=== PATIENT | female | born 1945 | race African-American/Black ===

== ENCOUNTER 2020-03-24 11:17 | Emergency (ER) | payer BC, MEDICAID ==
[~2020-03-24] VITALS: Ht 165.1 cm; Wt 64.0 kg
[2020-03-24] MEDS ORDERED: ACETAMINOPHEN 325MG TABLET PO STA (12:27)
[2020-03-24 13:07] LABS: BASOPHILS % 0.9 % (0.0-2.0); EOSINOPHILS % 1.6 % (0.0-5.0); HEMATOCRIT. 34.7 % (36.0-48.0); HEMOGLOBIN. 12.1 g/dL (12.0-16.0); LYMPHOCYTES % 24.9 % (20.0-50.0); MEAN CORPUSCULAR HEMOGLOBIN 33.2 pg (28.0-32.0); MEAN CORPUSCULAR VOLUME 95.7 fL (81.0-99.0); MEAN PLATELET VOLUME 8.8 fl (7.4-10.4); MONOCYTES % 10.4 % (2.0-8.0); NEUTROPHILS % 62.2 % (40.0-76.0); PLATELET 226 x1000/uL (130-400); RED BLOOD CELL COUNT 3.63 mill/uL (4.2-5.4); RED CELL DISTRIBUTION WIDTH 13.4 % (11.6-14.6)
[2020-03-24 13:13] LABS: CLARITY URINE CLOUDY (CLEAR); COLOR URINE YELLOW (YELLOW); KETONES URINE NEGATIVE (NEGATIVE); LEUKOCYTE ESTERASE URINE 3+ (NEGATIVE); NITRITE URINE NEGATIVE (NEGATIVE); OCCULT BLOOD URINE NEGATIVE (NEGATIVE); PROTEIN URINE NEGATIVE (NEGATIVE); SPECIFIC GRAVITY URINE 1.012 (1.005-1.030)
[2020-03-24 13:15] LABS: CHLORIDE 101 mEq/L (98-107)
[2020-03-24] MEDS ORDERED: CEFTRIAXONE 1 G PREMIX 50 ML IV NR (13:45)
[2020-03-24] MEDS ORDERED: POTASSIUM CHLORIDE 20MEQ TABLET SR PO NR (13:45)
[2020-03-24 14:45] VITALS: BP 150/98
== END 2020-03-24 15:47 | disposition home or self-care (01) ==
LOC: ER 11:34
DX: N39.0 Urinary tract infection, site not specified (principal); E87.6 Hypokalemia; I10 Essential (primary) hypertension; Z86.73 Personal history of transient ischemic attack (TIA), and cerebral infarction without residual deficits
CPT/HCPCS: 36415; 70450; 71045; 72170; 80053; 81003; 84484; 85025; 87086; 93005; 96374; 99285; J0696

== ENCOUNTER 2020-05-29 13:25 | Inpatient (IN) | payer MEDICARE, MEDICAID ==
[~2020-05-29] VITALS: Ht 167.6 cm; Wt 65.3 kg
[2020-05-29] MEDS ORDERED: SODIUM CHLORIDE 0.9% 1000ML BAG (SEPSIS BOLUS) IV ONE (13:45)
[2020-05-29] MEDS ORDERED: PIPERACILLIN/TAZ 3.375G PREMIX 50 ML IV ONE (13:45)
[2020-05-29] MEDS ORDERED: VANCOMYCIN 1 G PREMIX 200 ML IV ONE (13:45)
[2020-05-29 14:23] LABS: BASOPHILS % 0.1 % (0.0-2.0); HEMATOCRIT. 27.1 % (36.0-48.0); MEAN CORPUSCULAR HEMOGLOBIN 33.6 pg (28.0-32.0); MEAN CORPUSCULAR VOLUME 101.2 fL (81.0-99.0); MEAN PLATELET VOLUME 9.3 fl (7.4-10.4); MONOCYTES % 6.1 % (2.0-8.0); NEUTROPHILS % 82.8 % (40.0-76.0); PLATELET 155 x1000/uL (130-400); RED BLOOD CELL COUNT 2.68 mill/uL (4.2-5.4); RED CELL DISTRIBUTION WIDTH 16.2 % (11.6-14.6)
[2020-05-29 14:32] LABS: CHLORIDE 115 mEq/L (98-107)
[2020-05-29 14:33] LABS: INR 1.2; PROTHROMBIN TIME 12.2 sec (9.6-11.0)
[2020-05-29] MEDS ORDERED: SODIUM CHLORIDE 0.9% 1,000 ML IV ONE (15:15)
[2020-05-29] MEDS ORDERED: CLONIDINE 0.1MG TABLET PO PRN (19:00)
[2020-05-29] MEDS ORDERED: DIPHENHYDRAMINE 50MG/ML VIAL IV PRN (19:00)
[2020-05-29] MEDS ORDERED: ONDANSETRON HCL 4MG/2ML INJ IV PRN (19:00)
[2020-05-29] MEDS ORDERED: MORPHINE SULFATE 2 MG/ML CPJ (NOT FOR IM USE) IV PRN (19:00)
[2020-05-29] MEDS ORDERED: ACETAMINOPHEN 325MG TABLET PO PRN (19:00)
[2020-05-29] MEDS: DEXTROSE 5% WATER 1,000 ML IV SCH (19:52)
[2020-05-29] MEDS ORDERED: CEFTRIAXONE 1 G PREMIX 50 ML IV SCH (20:00)
[2020-05-29] MEDS ORDERED: CEFTRIAXONE 2 G PREMIX 50 ML IV SCH (20:00)
[2020-05-29] MEDS ORDERED: AMPICILLIN IM SCH (20:15)
[2020-05-29] MEDS: AMPICILLIN 2GM in NS 100ML 100 ML IV SCH (21:53)
[2020-05-30 03:59] LABS: BASOPHILS % 0.1 % (0.0-2.0); EOSINOPHILS % 0.1 % (0.0-5.0); HEMATOCRIT. 28.1 % (36.0-48.0); HEMOGLOBIN. 9.2 g/dL (12.0-16.0); LYMPHOCYTES % 8.5 % (20.0-50.0); MEAN CORPUSCULAR VOLUME 101.2 fL (81.0-99.0); MEAN PLATELET VOLUME 9.6 fl (7.4-10.4); NEUTROPHILS % 87.3 % (40.0-76.0); PLATELET 111 x1000/uL (130-400); RED BLOOD CELL COUNT 2.78 mill/uL (4.2-5.4)
[2020-05-30 04:13] LABS: CHLORIDE 117 mEq/L (98-107)
[2020-05-30 04:21] LABS: LDL CHOLESTEROL 39 mg/dL (5-100)
[2020-05-30 04:22] LABS: CREATINE KINASE 420 IU/L (26-192)
[2020-05-30 04:23] LABS: HDL CHOLESTEROL 50 mg/dL (40-59)
[2020-05-30] MEDS: AMPICILLIN 2GM in NS 100ML 100 ML IV SCH (05:39)
[2020-05-30] MEDS ORDERED: POTASSIUM CHLORIDE INJ 40 MEQ in DEXT 5% WATER 250 ML IV SCH (06:00)
[2020-05-30] MEDS: CEFTRIAXONE 2 G in DEXTROSE 5% WATER 50 ML IV SCH ×2 (10:26→23:21)
[2020-05-30] MEDS ORDERED: DEXTROSE 50% WATER 50ML SYRINGE IV PRN (11:30)
[2020-05-30] MEDS: INSULIN LISPRO 100 UNITS/ML SUBCUT SCH ×3 (12:40→21:00)
[2020-05-30] MEDS: BLOOD SUGAR DIAGNOSTIC STRIP TEST SCH ×3 (12:51→21:38)
[2020-05-30] MEDS: DEXTROSE 5% WATER 1,000 ML IV SCH ×2 (12:56→22:59)
[2020-05-30 13:00] VITALS: BP 116/78
[2020-05-30] MEDS: AMPICILLIN 2000MG in SODIUM CHLORIDE 0.9% 100ML IV SCH ×2 (15:17→21:38)
[2020-05-30 16:00] VITALS: BP 127/76
[2020-05-30] MEDS ORDERED: ATOR-2 PO (18:54)
[2020-05-30] MEDS ORDERED: BENA1TAB18 MT (18:54)
[2020-05-30] MEDS ORDERED: ASPI-986 PO (18:54)
[2020-05-30] MEDS ORDERED: TOPUD PO (18:54)
[2020-05-30] MEDS ORDERED: POTASSIUM CHLORIDE 20MEQ/PACKET NG SCH (21:00)
[2020-05-30] MEDS ORDERED: POTASSIUM CHLORIDE INJ 40 MEQ in DEXT 5% WATER 250 ML IV NR (23:00)
[2020-05-31] VITALS: BP_SYST 120; BP_SYST 128; BP_DIAS 70; BP_DIAS 80
[2020-05-31 00:29] LABS: TOTAL IRON BINDING CAPACITY 159 ug/dL (250-450)
[2020-05-31 01:36] LABS: FOLIC ACID (FOLATE) SERUM 3.2 ng/mL (>5.38)
[2020-05-31 04:00] VITALS: BP 148/79
[2020-05-31] MEDS: INSULIN LISPRO 100 UNITS/ML SUBCUT SCH ×4 (06:24→21:00)
[2020-05-31] MEDS: BLOOD SUGAR DIAGNOSTIC STRIP TEST SCH ×4 (06:24→21:27)
[2020-05-31 06:25] LABS: BASOPHILS % 0.1 % (0.0-2.0); EOSINOPHILS % 0.5 % (0.0-5.0); HEMATOCRIT. 27.2 % (36.0-48.0); HEMOGLOBIN. 9.2 g/dL (12.0-16.0); LYMPHOCYTES % 7.4 % (20.0-50.0); MEAN CORPUSCULAR HEMOGLOBIN 34.2 pg (28.0-32.0); MEAN CORPUSCULAR VOLUME 100.6 fL (81.0-99.0); MEAN PLATELET VOLUME 9.5 fl (7.4-10.4); MONOCYTES % 2.9 % (2.0-8.0); NEUTROPHILS % 89.1 % (40.0-76.0); PLATELET 110 x1000/uL (130-400); RED BLOOD CELL COUNT 2.71 mill/uL (4.2-5.4); RED CELL DISTRIBUTION WIDTH 17.2 % (11.6-14.6)
[2020-05-31] MEDS: DEXTROSE 5% WATER 1,000 ML IV SCH (07:54)
[2020-05-31 08:00] VITALS: BP 107/77
[2020-05-31 08:37] LABS: CLARITY URINE TURBID (CLEAR); COLOR URINE YELLOW (YELLOW); KETONES URINE NEGATIVE (NEGATIVE); LEUKOCYTE ESTERASE URINE 3+ (NEGATIVE); NITRITE URINE NEGATIVE (NEGATIVE); OCCULT BLOOD URINE 2+ (NEGATIVE); PROTEIN URINE 1+ (NEGATIVE); SPECIFIC GRAVITY URINE 1.017 (1.005-1.030)
[2020-05-31] MEDS ORDERED: INFLUENZA VACCINE 05/PF 0.5 ML VIAL IM ONE (09:00)
[2020-05-31] MEDS ORDERED: PNEUMOCOCCAL 23-VAL P-SAC VAC 0.5 ML IM ONE (09:00)
[2020-05-31] MEDS: ASPIRIN 325MG TABLET PO SCH (10:10)
[2020-05-31] MEDS: CEFTRIAXONE 2 G in DEXTROSE 5% WATER 50 ML IV SCH (10:10)
[2020-05-31] MEDS: CLOPIDOGREL 75MG TABLET PO SCH (10:40)
[2020-05-31 12:00] VITALS: BP 100/74
[2020-05-31] MEDS ORDERED: VANCOMYCIN 1 G PREMIX 200 ML IV NR (14:00)
[2020-05-31 16:00] VITALS: BP 114/75
[2020-05-31 20:00] VITALS: BP 113/80
[2020-05-31] MEDS: ATORVASTATIN CALCIUM 40MG TABLET PO SCH (21:30)
[2020-06-01] VITALS: BP 120/80
[2020-06-01] MEDS: DEXTROSE 5% WATER 1,000 ML IV SCH ×2 (03:54→18:36)
[2020-06-01 04:00] VITALS: BP 107/78
[2020-06-01] MEDS: BLOOD SUGAR DIAGNOSTIC STRIP TEST SCH ×4 (06:36→21:00)
[2020-06-01 07:20] LABS: BASOPHILS % 0.2 % (0.0-2.0); EOSINOPHILS % 0.4 % (0.0-5.0); HEMOGLOBIN. 9.2 g/dL (12.0-16.0); LYMPHOCYTES % 8.5 % (20.0-50.0); MEAN CORPUSCULAR VOLUME 100.2 fL (81.0-99.0); MEAN PLATELET VOLUME 9.5 fl (7.4-10.4); MONOCYTES % 2.8 % (2.0-8.0); NEUTROPHILS % 88.1 % (40.0-76.0); PLATELET 97 x1000/uL (130-400); RED CELL DISTRIBUTION WIDTH 16.8 % (11.6-14.6)
[2020-06-01] MEDS: INSULIN LISPRO 100 UNITS/ML SUBCUT SCH ×4 (07:40→21:00)
[2020-06-01 08:00] VITALS: BP 113/74
[2020-06-01] MEDS: ASPIRIN 325MG TABLET PO SCH (09:21)
[2020-06-01] MEDS: CEFTRIAXONE 2,000 G in DEXTROSE 5% WATER 50 ML IV SCH (09:21)
[2020-06-01] MEDS: CLOPIDOGREL 75MG TABLET PO SCH (09:22)
[2020-06-01 12:00] VITALS: BP 115/80
[2020-06-01 16:00] VITALS: BP 106/74
[2020-06-01] MEDS ORDERED: VANCOMYCIN 1 G PREMIX 200 ML IV NR (17:00)
[2020-06-01 20:00] VITALS: BP 106/77
[2020-06-02] VITALS: BP 130/86
[2020-06-02] MEDS: ATORVASTATIN CALCIUM 40MG TABLET PO SCH ×2 (00:40→21:08)
[2020-06-02 04:00] VITALS: BP 126/85
[2020-06-02] MEDS: BLOOD SUGAR DIAGNOSTIC STRIP TEST SCH ×4 (06:33→21:07)
[2020-06-02] MEDS: INSULIN LISPRO 100 UNITS/ML SUBCUT SCH ×4 (07:40→21:00)
[2020-06-02 08:00] VITALS: BP 122/82
[2020-06-02] MEDS: CLOPIDOGREL 75MG TABLET PO SCH (08:17)
[2020-06-02] MEDS: ASPIRIN 325MG TABLET PO SCH (08:17)
[2020-06-02 09:06] LABS: PHOSPHORUS 2.6 mg/dL (2.5-4.9)
[2020-06-02] MEDS: CEFTRIAXONE 2,000 G in DEXTROSE 5% WATER 50 ML IV SCH (09:14)
[2020-06-02] MEDS: DEXTROSE 5% WATER 1,000 ML IV SCH ×2 (09:15→21:08)
[2020-06-02] MEDS: FLUCONAZOLE 100MG TABLET PO SCH (09:29)
[2020-06-02 10:35] LABS: BASOPHILS % 0.3 % (0.0-2.0); EOSINOPHILS % 0.6 % (0.0-5.0); HEMATOCRIT. 23.5 % (36.0-48.0); HEMOGLOBIN. 7.9 g/dL (12.0-16.0); LYMPHOCYTES % 8.3 % (20.0-50.0); MEAN CORPUSCULAR VOLUME 100.8 fL (81.0-99.0); MEAN PLATELET VOLUME 9.3 fl (7.4-10.4); MONOCYTES % 2.6 % (2.0-8.0); NEUTROPHILS % 88.2 % (40.0-76.0); PLATELET 77 x1000/uL (130-400); RED BLOOD CELL COUNT 2.33 mill/uL (4.2-5.4)
[2020-06-02] MEDS ORDERED: POTASSIUM CHLORIDE INJ 40 MEQ in DEXT 5% WATER 250 ML IV NR (11:00)
[2020-06-02 12:00] VITALS: BP 125/85
[2020-06-02 16:00] VITALS: BP 129/92
[2020-06-02] MEDS: CEFEPIME 1,000 MG in DEXTROSE 5% WATER 50 ML IV SCH ×2 (16:24→23:25)
[2020-06-02 20:00] VITALS: BP 138/90
[2020-06-03] VITALS: BP 122/90
[2020-06-03 04:00] VITALS: BP 121/86
[2020-06-03] MEDS: DEXTROSE 5% WATER 1,000 ML IV SCH ×2 (06:09→17:41)
[2020-06-03 06:48] LABS: BASOPHILS % 0.2 % (0.0-2.0); HEMATOCRIT. 23.9 % (36.0-48.0); LYMPHOCYTES % 15.8 % (20.0-50.0); MEAN CORPUSCULAR HEMOGLOBIN 34.1 pg (28.0-32.0); MEAN CORPUSCULAR VOLUME 101.5 fL (81.0-99.0); MEAN PLATELET VOLUME 9.2 fl (7.4-10.4); MONOCYTES % 2.2 % (2.0-8.0); NEUTROPHILS % 80.8 % (40.0-76.0); PLATELET 62 x1000/uL (130-400); RED BLOOD CELL COUNT 2.36 mill/uL (4.2-5.4); RED CELL DISTRIBUTION WIDTH 16.9 % (11.6-14.6)
[2020-06-03 06:54] LABS: CHLORIDE 114 mEq/L (98-107)
[2020-06-03 07:00] LABS: PHOSPHORUS 2.1 mg/dL (2.5-4.9)
[2020-06-03] MEDS: INSULIN LISPRO 100 UNITS/ML SUBCUT SCH ×4 (07:35→20:59)
[2020-06-03] MEDS: BLOOD SUGAR DIAGNOSTIC STRIP TEST SCH ×4 (07:35→20:59)
[2020-06-03 08:00] VITALS: BP 131/86
[2020-06-03] MEDS ORDERED: VANCOMYCIN 500 MG PREMIX 100 ML IV SCH (09:00)
[2020-06-03] MEDS: CEFEPIME 1,000 MG in DEXTROSE 5% WATER 50 ML IV SCH ×3 (09:39→23:15)
[2020-06-03] MEDS: FLUCONAZOLE 100MG TABLET PO SCH (09:40)
[2020-06-03] MEDS ORDERED: POTASSIUM PHOS,M-BASIC-D-BASIC 30 MMOL in DEXT 5% WATER 500 ML IV SCH (11:00)
[2020-06-03 12:00] VITALS: BP 118/89
[2020-06-03 16:00] VITALS: BP 133/90
[2020-06-03] MEDS ORDERED: CYANOCOBALAMIN 1000MCG/ML VIAL IM NR (16:30)
[2020-06-03 20:00] VITALS: BP 145/99
[2020-06-03] MEDS: ATORVASTATIN CALCIUM 40MG TABLET PO SCH (21:43)
[2020-06-04] VITALS (7 sets, daily range): BP systolic 106–138; BP diastolic 76–97
[2020-06-04] MEDS: DEXTROSE 5% WATER 1,000 ML IV SCH ×3 (01:15→23:07)
[2020-06-04] MEDS: BLOOD SUGAR DIAGNOSTIC STRIP TEST SCH ×4 (06:17→21:00)
[2020-06-04] MEDS: INSULIN LISPRO 100 UNITS/ML SUBCUT SCH ×4 (06:55→21:00)
[2020-06-04] MEDS: CEFEPIME 1,000 MG in DEXTROSE 5% WATER 50 ML IV SCH ×3 (08:23→23:09)
[2020-06-04] MEDS: FOLIC ACID 1MG TABLET PO SCH (08:42)
[2020-06-04 08:57] LABS: BASOPHILS % 0.1 % (0.0-2.0); EOSINOPHILS % 0.5 % (0.0-5.0); HEMOGLOBIN. 7.5 g/dL (12.0-16.0); LYMPHOCYTES % 10.9 % (20.0-50.0); MEAN CORPUSCULAR HEMOGLOBIN 33.8 pg (28.0-32.0); MEAN CORPUSCULAR VOLUME 99.4 fL (81.0-99.0); MEAN PLATELET VOLUME 9.8 fl (7.4-10.4); MONOCYTES % 1.7 % (2.0-8.0); NEUTROPHILS % 86.8 % (40.0-76.0); RED BLOOD CELL COUNT 2.22 mill/uL (4.2-5.4)
[2020-06-04 09:00] LABS: INR 1.2
[2020-06-04 09:10] LABS: CHLORIDE 103 mEq/L (98-107)
[2020-06-04 09:16] LABS: PHOSPHORUS 3.5 mg/dL (2.5-4.9)
[2020-06-04 09:24] LABS: PLATELET 48 x1000/uL (130-400)
[2020-06-04 09:50] LABS: PLATELET ESTIMATE MARKEDLY DECREASED
[2020-06-04] MEDS: FLUCONAZOLE 200MG/5ML ORAL SYR NG SCH (10:00)
[2020-06-04] MEDS ORDERED: FENTANYL CITRATE/PF 50MCG/ML 2ML VIAL ONE (10:12)
[2020-06-04] MEDS ORDERED: MIDAZOLAM HCL 5 MG/5 ML VIAL ONE (10:12)
[2020-06-04] MEDS ORDERED: MIDAZOLAM HCL 5 MG/5 ML VIAL IV PRN (10:47)
[2020-06-04] MEDS: MORPHINE SULFATE 2 MG/ML CPJ (NOT FOR IM USE) IV PRN (14:56)
[2020-06-04] MEDS ORDERED: MAGNESIUM 2 G PREMIX 50 ML IV NR (15:30)
[2020-06-05] VITALS: BP 103/72
[2020-06-05] MEDS: MORPHINE SULFATE 2 MG/ML CPJ (NOT FOR IM USE) IV PRN (01:23)
[2020-06-05 04:00] VITALS: BP 113/80
[2020-06-05] MEDS: INSULIN LISPRO 100 UNITS/ML SUBCUT SCH ×4 (07:40→20:18)
[2020-06-05 08:00] VITALS: BP 108/81
[2020-06-05 08:15] LABS: BASOPHILS % 0.2 % (0.0-2.0); EOSINOPHILS % 0.7 % (0.0-5.0); HEMATOCRIT. 22.5 % (36.0-48.0); HEMOGLOBIN. 7.5 g/dL (12.0-16.0); LYMPHOCYTES % 19.7 % (20.0-50.0); MEAN CORPUSCULAR HEMOGLOBIN 33.6 pg (28.0-32.0); MEAN CORPUSCULAR VOLUME 100.1 fL (81.0-99.0); NEUTROPHILS % 75.4 % (40.0-76.0); RED BLOOD CELL COUNT 2.25 mill/uL (4.2-5.4); RED CELL DISTRIBUTION WIDTH 16.3 % (11.6-14.6)
[2020-06-05 08:24] LABS: PLATELET 37 x1000/uL (130-400)
[2020-06-05 08:40] LABS: CHLORIDE 99 mEq/L (98-107)
[2020-06-05 08:49] LABS: PHOSPHORUS 3.1 mg/dL (2.5-4.9)
[2020-06-05] MEDS: CEFEPIME 1,000 MG in DEXTROSE 5% WATER 50 ML IV SCH ×3 (09:03→23:20)
[2020-06-05] MEDS: FLUCONAZOLE 200MG/5ML ORAL SYR NG SCH (09:03)
[2020-06-05] MEDS: FOLIC ACID 1MG TABLET PO SCH (09:03)
[2020-06-05] MEDS: DEXTROSE 5% WATER 1,000 ML IV SCH (09:04)
[2020-06-05 12:00] VITALS: BP 119/77
[2020-06-05] MEDS: BLOOD SUGAR DIAGNOSTIC STRIP TEST SCH ×3 (12:11→20:18)
[2020-06-05 16:00] VITALS: BP 108/74
[2020-06-05 20:00] VITALS: BP 101/71
[2020-06-06] VITALS: BP 108/77
[2020-06-06 04:00] VITALS: BP 109/75
[2020-06-06] MEDS: INSULIN LISPRO 100 UNITS/ML SUBCUT SCH ×4 (06:35→21:00)
[2020-06-06] MEDS: BLOOD SUGAR DIAGNOSTIC STRIP TEST SCH ×4 (06:35→21:00)
[2020-06-06 08:00] VITALS: BP 116/80
[2020-06-06] MEDS: FLUCONAZOLE 200MG/5ML ORAL SYR NG SCH (09:18)
[2020-06-06] MEDS: FOLIC ACID 1MG TABLET PO SCH (09:18)
[2020-06-06] MEDS: CEFEPIME 1,000 MG in DEXTROSE 5% WATER 50 ML IV SCH ×3 (09:19→23:45)
[2020-06-06 09:45] LABS: BASOPHILS % 0.2 % (0.0-2.0); EOSINOPHILS % 0.4 % (0.0-5.0); LYMPHOCYTES % 15.8 % (20.0-50.0); MEAN CORPUSCULAR HEMOGLOBIN 33.6 pg (28.0-32.0); MEAN CORPUSCULAR VOLUME 99.4 fL (81.0-99.0); MEAN PLATELET VOLUME 10.4 fl (7.4-10.4); MONOCYTES % 7.4 % (2.0-8.0); NEUTROPHILS % 76.2 % (40.0-76.0); RED BLOOD CELL COUNT 2.05 mill/uL (4.2-5.4); RED CELL DISTRIBUTION WIDTH 16.7 % (11.6-14.6)
[2020-06-06 10:04] LABS: CHLORIDE 100 mEq/L (98-107)
[2020-06-06 10:09] LABS: PHOSPHORUS 2.7 mg/dL (2.5-4.9)
[2020-06-06 10:24] LABS: HEMOGLOBIN. 6.9 g/dL (12.0-16.0)
[2020-06-06 10:25] LABS: HEMATOCRIT. 20.3 % (36.0-48.0); PLATELET 33 x1000/uL (130-400)
[2020-06-06 16:00] VITALS: BP 110/74
[2020-06-06 20:00] VITALS: BP 115/74
[2020-06-06 20:04] LABS: HEMATOCRIT 23.7 % (36.0-48.0); HEMOGLOBIN 7.9 g/dL (12.0-16.0); MEAN CORPUSCULAR HEMOGLOBIN 33.1 pg (28.0-32.0); MEAN CORPUSCULAR VOLUME 99.6 fL (81.0-99.0); RED BLOOD CELL COUNT 2.38 mill/uL (4.2-5.4)
[2020-06-06 20:08] LABS: PLATELET 30 x1000/uL (130-400)
[2020-06-06] MEDS: NYSTATIN POWDER 15GM TOP SCH (23:45)
[2020-06-07] VITALS: BP 101/70
[2020-06-07 04:00] VITALS: BP 97/62
[2020-06-07] MEDS: INSULIN LISPRO 100 UNITS/ML SUBCUT SCH ×4 (06:29→20:48)
[2020-06-07] MEDS: BLOOD SUGAR DIAGNOSTIC STRIP TEST SCH ×4 (06:29→20:48)
[2020-06-07] MEDS: CEFEPIME 1,000 MG in DEXTROSE 5% WATER 50 ML IV SCH ×3 (07:51→23:36)
[2020-06-07 08:00] VITALS: BP 96/77
[2020-06-07 09:02] LABS: HEMATOCRIT. 21.7 % (36.0-48.0); HEMOGLOBIN. 7.3 g/dL (12.0-16.0); MEAN CORPUSCULAR HEMOGLOBIN 33.8 pg (28.0-32.0); MEAN CORPUSCULAR VOLUME 99.8 fL (81.0-99.0); MEAN PLATELET VOLUME 10.4 fl (7.4-10.4); RED BLOOD CELL COUNT 2.17 mill/uL (4.2-5.4); RED CELL DISTRIBUTION WIDTH 17.4 % (11.6-14.6)
[2020-06-07 09:05] LABS: PLATELET 29 x1000/uL (130-400)
[2020-06-07] MEDS: FOLIC ACID 1MG TABLET PO SCH (09:13)
[2020-06-07] MEDS: NYSTATIN POWDER 15GM TOP SCH ×2 (09:13→21:02)
[2020-06-07] MEDS: FLUCONAZOLE 200MG/5ML ORAL SYR NG SCH (09:17)
[2020-06-07 09:21] LABS: PHOSPHORUS 3.3 mg/dL (2.5-4.9)
[2020-06-07 10:59] LABS: NUCLEATED RED BLOOD CELLS 2 /100 WBC
[2020-06-07 11:00] LABS: PLATELET ESTIMATE MARKEDLY DECREASED
[2020-06-07 12:00] VITALS: BP 96/62
[2020-06-07] MEDS: METOCLOPRAMIDE HCL 10MG/2ML VIAL IV SCH ×3 (12:00→23:36)
[2020-06-07 16:00] VITALS: BP 104/69
[2020-06-07 20:00] VITALS: BP 100/67
[2020-06-08] VITALS (10 sets, daily range): BP systolic 105–130; BP diastolic 60–84
[2020-06-08] MEDS: METOCLOPRAMIDE HCL 10MG/2ML VIAL IV SCH ×3 (05:18→18:00)
[2020-06-08] MEDS: INSULIN LISPRO 100 UNITS/ML SUBCUT SCH ×4 (06:00→21:00)
[2020-06-08] MEDS: BLOOD SUGAR DIAGNOSTIC STRIP TEST SCH ×4 (06:00→21:00)
[2020-06-08 07:15] LABS: EOSINOPHILS % 0.2 % (0.0-5.0); LYMPHOCYTES % 9.2 % (20.0-50.0); MEAN CORPUSCULAR HEMOGLOBIN 33.8 pg (28.0-32.0); MEAN CORPUSCULAR VOLUME 99.6 fL (81.0-99.0); MEAN PLATELET VOLUME 10.2 fl (7.4-10.4); MONOCYTES % 7.4 % (2.0-8.0); NEUTROPHILS % 83.2 % (40.0-76.0); RED BLOOD CELL COUNT 1.83 mill/uL (4.2-5.4); RED CELL DISTRIBUTION WIDTH 16.8 % (11.6-14.6)
[2020-06-08 07:53] LABS: PHOSPHORUS 3.2 mg/dL (2.5-4.9)
[2020-06-08] MEDS: CEFEPIME 1,000 MG in DEXTROSE 5% WATER 50 ML IV SCH ×2 (08:07→16:00)
[2020-06-08] MEDS: SODIUM CHLORIDE 0.9% 1,000 ML IV SCH ×2 (08:09→22:39)
[2020-06-08 08:29] LABS: HEMOGLOBIN. 6.2 g/dL (12.0-16.0)
[2020-06-08 08:30] LABS: HEMATOCRIT. 18.2 % (36.0-48.0); PLATELET 27 x1000/uL (130-400)
[2020-06-08] MEDS: NYSTATIN POWDER 15GM TOP SCH ×2 (09:40→22:39)
[2020-06-08] MEDS: FLUCONAZOLE 200MG/5ML ORAL SYR NG SCH (09:40)
[2020-06-08] MEDS: FOLIC ACID 1MG TABLET PO SCH (09:40)
[2020-06-08 20:49] LABS: HEMATOCRIT 25.5 % (36.0-48.0); HEMOGLOBIN 8.5 g/dL (12.0-16.0)
[2020-06-08] MEDS: CEFAZOLIN 1000MG PREMIX 50 ML IV SCH (22:37)
[2020-06-09] VITALS (8 sets, daily range): BP systolic 115–134; BP diastolic 70–85
[2020-06-09] MEDS: METOCLOPRAMIDE HCL 10MG/2ML VIAL IV SCH ×4 (00:55→18:32)
[2020-06-09] MEDS: INSULIN LISPRO 100 UNITS/ML SUBCUT SCH ×4 (06:37→19:54)
[2020-06-09] MEDS: BLOOD SUGAR DIAGNOSTIC STRIP TEST SCH ×4 (06:37→19:53)
[2020-06-09 07:22] LABS: HEMATOCRIT. 23.8 % (36.0-48.0); HEMOGLOBIN. 8.1 g/dL (12.0-16.0); MEAN CORPUSCULAR HEMOGLOBIN 33.3 pg (28.0-32.0); MEAN CORPUSCULAR VOLUME 97.9 fL (81.0-99.0); MEAN PLATELET VOLUME 9.4 fl (7.4-10.4); RED BLOOD CELL COUNT 2.43 mill/uL (4.2-5.4); RED CELL DISTRIBUTION WIDTH 15.9 % (11.6-14.6)
[2020-06-09 07:36] LABS: PHOSPHORUS 2.7 mg/dL (2.5-4.9)
[2020-06-09] MEDS: CEFAZOLIN 1000MG PREMIX 50 ML IV SCH ×2 (09:00→20:03)
[2020-06-09 11:30] LABS: NUCLEATED RED BLOOD CELLS 1 /100 WBC; PLATELET ESTIMATE MARKEDLY DECREASED
[2020-06-09 11:31] LABS: PLATELET 18 x1000/uL (130-400)
[2020-06-09] MEDS: SODIUM CHLORIDE 0.9% 1,000 ML IV SCH (13:28)
[2020-06-09] MEDS: FOLIC ACID 1MG TABLET PO SCH (13:28)
[2020-06-09 15:15] LABS: EOSINOPHILS % 0.3 % (0.0-5.0); HEMATOCRIT. 27.2 % (36.0-48.0); HEMOGLOBIN. 9.2 g/dL (12.0-16.0); LYMPHOCYTES % 8.3 % (20.0-50.0); MEAN CORPUSCULAR HEMOGLOBIN 32.8 pg (28.0-32.0); MEAN CORPUSCULAR VOLUME 97.5 fL (81.0-99.0); MEAN PLATELET VOLUME 9.4 fl (7.4-10.4); MONOCYTES % 10.3 % (2.0-8.0); NEUTROPHILS % 81.1 % (40.0-76.0); RED BLOOD CELL COUNT 2.79 mill/uL (4.2-5.4); RED CELL DISTRIBUTION WIDTH 16.3 % (11.6-14.6)
[2020-06-09 15:51] LABS: PLATELET 35 x1000/uL (130-400)
[2020-06-09] MEDS: NYSTATIN POWDER 15GM TOP SCH ×2 (18:32→20:04)
[2020-06-10] VITALS (8 sets, daily range): BP systolic 93–153; BP diastolic 34–92
[2020-06-10] MEDS: METOCLOPRAMIDE HCL 10MG/2ML VIAL IV SCH ×5 (00:32→23:31)
[2020-06-10] MEDS: SODIUM CHLORIDE 0.9% 1,000 ML IV SCH ×2 (00:32→12:35)
[2020-06-10] MEDS: INSULIN LISPRO 100 UNITS/ML SUBCUT SCH ×4 (05:38→20:47)
[2020-06-10] MEDS: BLOOD SUGAR DIAGNOSTIC STRIP TEST SCH ×4 (05:38→20:47)
[2020-06-10] MEDS: CEFAZOLIN 1000MG PREMIX 50 ML IV SCH ×2 (08:32→21:44)
[2020-06-10] MEDS: FOLIC ACID 1MG TABLET PO SCH (08:32)
[2020-06-10] MEDS: NYSTATIN POWDER 15GM TOP SCH ×2 (08:33→21:44)
[2020-06-10 08:36] LABS: PHOSPHORUS 2.9 mg/dL (2.5-4.9)
[2020-06-10 10:10] LABS: BASOPHILS % 0.2 % (0.0-2.0); EOSINOPHILS % 0.8 % (0.0-5.0); HEMATOCRIT. 22.7 % (36.0-48.0); HEMOGLOBIN. 7.8 g/dL (12.0-16.0); MEAN CORPUSCULAR HEMOGLOBIN 33.4 pg (28.0-32.0); MEAN CORPUSCULAR VOLUME 97.1 fL (81.0-99.0); MEAN PLATELET VOLUME 9.2 fl (7.4-10.4); MONOCYTES % 8.3 % (2.0-8.0); NEUTROPHILS % 82.7 % (40.0-76.0); RED BLOOD CELL COUNT 2.34 mill/uL (4.2-5.4); RED CELL DISTRIBUTION WIDTH 16.1 % (11.6-14.6)
[2020-06-10 11:00] LABS: PLATELET 38 x1000/uL (130-400)
[2020-06-10] MEDS ORDERED: MAGNESIUM 2 G PREMIX 50 ML IV SCH (12:00)
[2020-06-10 20:25] LABS: HEMOGLOBIN. 7.3 g/dL (12.0-16.0); MEAN CORPUSCULAR HEMOGLOBIN 33.8 pg (28.0-32.0); MEAN CORPUSCULAR VOLUME 96.9 fL (81.0-99.0); MEAN PLATELET VOLUME 8.1 fl (7.4-10.4); PLATELET 88 x1000/uL (130-400); RED BLOOD CELL COUNT 2.16 mill/uL (4.2-5.4); RED CELL DISTRIBUTION WIDTH 16.6 % (11.6-14.6)
[2020-06-10 20:31] LABS: HEMATOCRIT. 20.9 % (36.0-48.0)
[2020-06-10 21:07] LABS: PLATELET ESTIMATE DECREASED
[2020-06-11] VITALS: BP 129/70
[2020-06-11] MEDS: SODIUM CHLORIDE 0.9% 1,000 ML IV SCH ×2 (02:24→15:39)
[2020-06-11 04:00] VITALS: BP 133/84
[2020-06-11] MEDS: INSULIN LISPRO 100 UNITS/ML SUBCUT SCH ×3 (05:56→17:28)
[2020-06-11] MEDS: METOCLOPRAMIDE HCL 10MG/2ML VIAL IV SCH ×3 (05:56→17:28)
[2020-06-11] MEDS: BLOOD SUGAR DIAGNOSTIC STRIP TEST SCH ×3 (05:56→17:28)
[2020-06-11 08:46] LABS: HEMATOCRIT. 22.2 % (36.0-48.0); HEMOGLOBIN. 7.6 g/dL (12.0-16.0); MEAN CORPUSCULAR HEMOGLOBIN 33.4 pg (28.0-32.0); MEAN CORPUSCULAR VOLUME 97.4 fL (81.0-99.0); MEAN PLATELET VOLUME 8.6 fl (7.4-10.4); PLATELET 93 x1000/uL (130-400); RED BLOOD CELL COUNT 2.28 mill/uL (4.2-5.4); RED CELL DISTRIBUTION WIDTH 16.6 % (11.6-14.6)
[2020-06-11] MEDS: CEFAZOLIN 1000MG PREMIX 50 ML IV SCH (09:15)
[2020-06-11] MEDS: FOLIC ACID 1MG TABLET PO SCH (09:15)
[2020-06-11] MEDS: NYSTATIN POWDER 15GM TOP SCH (09:15)
[2020-06-11 09:27] LABS: PHOSPHORUS 3.4 mg/dL (2.5-4.9)
[2020-06-11 12:00] VITALS: BP 86/29
[2020-06-11 14:46] LABS: PLATELET ESTIMATE DECREASED
[2020-06-11 16:00] VITALS: BP 148/90
[2020-06-11 18:20] VITALS: BP 129/83
== END 2020-06-11 19:47 | DRG 871 ==
LOC: ER 13:25 → EDBEDREQTM 15:30 → EDBEDREQ 15:30 → EDBEDREQSVC 15:30 → MICUSO 17:50 → EDBEDREQ 18:16 → EDBEDREQTM 18:16 → 8 EST A/PP 05-30 09:04 → 8WST 05-30 11:15 → UNDODISIN 06-11 13:45
PROVIDERS: ADMIT Internal Medicine; ATTEND Internal Medicine
PROC: 0DH68UZ Insertion of Feeding Device into Stomach, Via Natural or Artificial Opening Endoscopic (ICD-10-PCS; principal; 2020-06-04)
PROC: 05HY33Z Insertion of Infusion Device into Upper Vein, Percutaneous Approach (ICD-10-PCS; 2020-06-07)
PROC: B54MZZA Ultrasonography of Right Upper Extremity Veins, Guidance (ICD-10-PCS; 2020-06-07)
PROC: 30233N1 Transfusion of Nonautologous Red Blood Cells into Peripheral Vein, Percutaneous Approach (ICD-10-PCS; 2020-06-08)
PROC: 30233R1 Transfusion of Nonautologous Platelets into Peripheral Vein, Percutaneous Approach (ICD-10-PCS; 2020-06-09)
DX: A41.01 Sepsis due to Methicillin susceptible Staphylococcus aureus (principal); G92 Toxic encephalopathy; I63.9 Cerebral infarction, unspecified; E44.0 Moderate protein-calorie malnutrition; E87.0 Hyperosmolality and hypernatremia; E87.2 Acidosis; I50.30 Unspecified diastolic (congestive) heart failure; I69.354 Hemiplegia and hemiparesis following cerebral infarction affecting left non-dominant side; N17.9 Acute kidney failure, unspecified; N39.0 Urinary tract infection, site not specified; E87.1 Hypo-osmolality and hyponatremia; R17 Unspecified jaundice; I13.0 Hypertensive heart and chronic kidney disease with heart failure and stage 1 through stage 4 chronic kidney disease, or unspecified chronic kidney disease; R65.20 Severe sepsis without septic shock; D53.9 Nutritional anemia, unspecified; D69.6 Thrombocytopenia, unspecified; E78.5 Hyperlipidemia, unspecified; E87.6 Hypokalemia; D70.9 Neutropenia, unspecified; E83.42 Hypomagnesemia; E83.51 Hypocalcemia; E78.00 Pure hypercholesterolemia, unspecified; K29.70 Gastritis, unspecified, without bleeding; K44.9 Diaphragmatic hernia without obstruction or gangrene; R13.12 Dysphagia, oropharyngeal phase; Z20.822 Contact with and (suspected) exposure to COVID-19; R74.01 Elevation of levels of liver transaminase levels; N28.1 Cyst of kidney, acquired; S90.32XA Contusion of left foot, initial encounter; S90.31XA Contusion of right foot, initial encounter; G40.909 Epilepsy, unspecified, not intractable, without status epilepticus; N18.9 Chronic kidney disease, unspecified; Z79.82 Long term (current) use of aspirin; Z93.1 Gastrostomy status; Z79.899 Other long term (current) drug therapy; Z68.23 Body mass index [BMI] 23.0-23.9, adult; Z86.16 Personal history of COVID-19; X58.XXXA Exposure to other specified factors, initial encounter; Y93.89 Activity, other specified; Y92.89 Other specified places as the place of occurrence of the external cause; Y99.8 Other external cause status
CPT/HCPCS: 36415; 70551; 71045; 74018; 76770; 76937; 80048; 80053; 80061; 80076; 80202; 81003; 82040; 82140; 82550; 82607; 82728; 82746; 82962; 83036; 83540; 83550; 83605; 83735; 83880; 84100; 84134; 84145; 84443; 84484; 85014; 85018; 85025; 85027; 85384; 86850; 86900; 86920; 87077; 87106; 87186; 87426; 93005; 93306; 93880; 93923; 93970; 93971; 95816; 96365; 99291; A6261; C1725; C1893; J0290; J0690; J0692; J0696; J1815; J2250; J2270; J2405; J2543; J2765; J3010; J3370; J3420; J3475; J3480; J3490; J7030; J7040; J7042; J7050; J7060; J7070; P9016; P9034

== ENCOUNTER 2020-10-07 11:28 | Emergency (ER) | payer MEDICARE, MEDICAID ==
[~2020-10-07] VITALS: Ht 165.1 cm; Wt 64.0 kg
[2020-10-07] MEDS ORDERED: VANCOMYCIN 1 G PREMIX 200 ML IV ONE (12:15)
[2020-10-07] MEDS ORDERED: SODIUM CHLORIDE 0.9% 1000ML BAG (SEPSIS BOLUS) IV ONE (12:15)
[2020-10-07] MEDS ORDERED: PIPERACILLIN/TAZ 3.375G PREMIX 50 ML IV ONE (12:15)
[2020-10-07 13:22] LABS: HEMATOCRIT. 33.8 % (36.0-48.0); HEMOGLOBIN. 11.8 g/dL (12.0-16.0); MEAN CORPUSCULAR HEMOGLOBIN 33.2 pg (28.0-32.0); MEAN CORPUSCULAR VOLUME 95.1 fL (81.0-99.0); MEAN PLATELET VOLUME 8.4 fl (7.4-10.4); PLATELET 310 x1000/uL (130-400); RED BLOOD CELL COUNT 3.56 mill/uL (4.2-5.4); RED CELL DISTRIBUTION WIDTH 15.7 % (11.6-14.6)
[2020-10-07 13:32] LABS: INR 1.1; PROTHROMBIN TIME 11.9 sec (9.6-11.0)
[2020-10-07 13:34] LABS: CHLORIDE 108 mEq/L (98-107)
[2020-10-07 13:58] LABS: PLATELET ESTIMATE NORMAL
[2020-10-07 16:25] LABS: CLARITY URINE CLEAR (CLEAR); COLOR URINE YELLOW (YELLOW); KETONES URINE NEGATIVE (NEGATIVE); LEUKOCYTE ESTERASE URINE NEGATIVE (NEGATIVE); NITRITE URINE NEGATIVE (NEGATIVE); OCCULT BLOOD URINE NEGATIVE (NEGATIVE); PH URINE 7.5 (4.5-8.0); PROTEIN URINE NEGATIVE (NEGATIVE)
[2020-10-07 23:06] VITALS: BP 126/80
== END 2020-10-07 23:30 | disposition short-term general hospital (02) ==
LOC: ER 12:32
DX: E86.0 Dehydration (principal); R00.0 Tachycardia, unspecified; R11.10 Vomiting, unspecified; N28.9 Disorder of kidney and ureter, unspecified; I69.354 Hemiplegia and hemiparesis following cerebral infarction affecting left non-dominant side; Z93.1 Gastrostomy status
CPT/HCPCS: 36415; 70450; 71045; 80053; 81003; 82962; 83605; 84145; 84484; 85025; 85610; 87040; 87077; 87086; 87186; 93005; 96365; 96367; 99285; J2543; J3370; J7030